=== PATIENT | male | born 1955 | race Caucasian/White ===

== ENCOUNTER 2020-12-15 14:22 | Emergency (ER) | payer OTHER ==
[~2020-12-15] VITALS: Ht 177.8 cm; Wt 106.6 kg
--- NOTE | ~2020-12-15 | EMS ---
[address] [address] EMS Patient Care Report Name: YUKI RUBIN Room #: [place]P [place]#: [id number] Admission: 12/15/20 Attend Phys: Discharge: 12/15/20 Date of : 53 Report #: [id number] THIS REPORT FOR: //name// Report Transmitted: 12/18/2020 10:26 EMS Care Summary [place], [place]/[facility] Incident [id number] @ 12/15/2020 13:33 Incident Location [address] [place] [address] Patient YUKI RUBIN Male, 65 Years 1955 Patient Address [address] [place] [id number] Patient History Diabetes,Hyperlipidemia,Morbid Obesity, Patient Allergies No known allergies, Patient Medications None Reported, Chief Complaint malaise Disposition Transported No Lights/[place] Dispatch Reason Sick Person Transported To [facility] Narrative Dispatched to a [facility] facility in regards to a sick. Upon arrival, I saw patient laying in bed in room 806. Initial assessment revealed that patient was GCS15 and did not appear to be in respiratory distress. Patient's chief [address] [address] EMS Patient Care Report Name: YUKI RUBIN Room #: DEP [place]#: [id number] Admission: 12/15/20 Attend Phys: Discharge: 12/15/20 Date of : 53 Report #: [id number] complaint was general malaise. RN stated that patient has tested positive for covid-19 and that patient requested to go to the ER even though all his vitals are normal. Physical assessment revealed that patient was pink warm and dry. Patient was transferred to our cot. Patient was secured and lifted into the ambulance. Treatment rendered was obtaining a complete set of baseline vital signs including a blood glucose reading and continued oxygen therapy. patient was transported to [facility] and patient care was transferred on arrival. Initial Vitals @14:03P: 102,R: 16,BP: 144/86,Pain: 8/10,GCS: 15,Revised Trauma: 12, @14:07P: 116,R: 16,BP: 144/86,Pain: 6/10,GCS: 15,Glucose: 95,SpO2: 94,Revised Trauma: 12, Assessments @14:00MENTAL:Event Oriented,Time Oriented,Place Oriented,Person Oriented,SKIN:HEENT:Head/Face: No Abnormalities,Eyes: No Abnormalities,LUNG SOUNDS:ABDOMEN:PELVIS//GI:EXTREMITIES:PULSE:NEURO:No Abnormalities, Impression Generalized Weakness Procedures @14:02ALS AssessmentResponse: UnchangedSucceeded@14:09Oxygen FlowRate: 2 Device: CO2 Nasal Cannula Response: UnchangedSucceeded Timeline 13:31,Call Received 13:31,Dispatch Notified 13:33,Dispatched 13:33,En Route 13:44,On Scene 13:45,At Patient 14:02,ALS Assessment,Response: UnchangedSucceeded, 14:03,BP: 144/86 M,PULSE: 102,RR: 16 R,SPO2: Ox,ETCO2: ,BG: ,PAIN: 8,GCS: 15, 14:07,Depart Scene 14:07,BP: 144/86 M,PULSE: 116,RR: 16 R,SPO2: 94 Ox,ETCO2: ,B,PAIN: 6,GCS: 15, 14:09,Oxygen FlowRate: 2 Device: CO2 Nasal Cannula Response: UnchangedSucceeded, 14:28,At Destination 14:28,Call Closed Disclaimer v1.1 Copyright 2020 [employer] This EMS Care Summary contains data elements from the applicable legal record (which may be displayed differently). It is designed to provide pertinent [address] [place] [address] EMS Patient Care Report Name: CARYNYUKI Room #: DEP Bárbara#: [id number] Admission: 12/15/20 Attend Phys: Discharge: 12/15/20 Date of : 53 Report #: [id number] information for the following purposes: continuity of care, clinical quality, and state data reporting. The complete legal record is available to ED staff and administrators of the receiving hospital in ES's Patient Tracker. All data is provided "as is."
[2020-12-15 14:57] LABS: ABSOLUTE NEUTROPHILS 5.8 thou/uL (1.4-8.2); BASOPHILS 0.6 % (0.0-2.0); EOSINOPHILS 0.6 % (0.0-3.0); HEMATOCRIT 33.9 % (42.0-52.0); HEMOGLOBIN 11.2 gm/dL (14.0-18.0); LYMPHOCYTES 16.2 % (24.0-44.0); MCH 28.1 pg (26.0-34.0); MCHC 33.1 g/dL (28.0-37.0); MCV 84.9 fL (80.0-100.0); MONOCYTES 10.3 % (1.0-8.0); PLATELET COUNT 398 thou/uL (150-400); POLYS 72.3 % (36.0-66.0); RDW 17.2 % (10.5-14.5)
[2020-12-15 15:07] LABS: CALCIUM 8.5 mg/dL (8.5-10.1); CREATININE 0.7 mg/dL (0.7-1.3); POTASSIUM 3.6 mmol/L (3.5-5.1)
[2020-12-15 15:17] LABS: ALBUMIN 1.8 g/dL (3.4-5.0); TOTAL BILIRUBIN 0.6 mg/dL (0.2-1.0); TOTAL PROTEIN 7.1 g/dL (6.4-8.2)
[2020-12-15 15:25] LABS: APTT 32.8 Seconds (24.5-32.8); INR 1.16; PROTIME 12.6 Seconds (10.5-12.1)
[2020-12-15] MEDS ORDERED: VIBRAMYCIN 100100 MG PO (16:22)
[2020-12-15 17:53] VITALS: BP 135/68
--- NOTE | 2020-12-15 19:10 | NUR ---
EMS ARRIVED AND WAS PREPARING TO TRANSPORT PATIENT BACK TO SKILLED FACILITY ([facility]). PATIENT SPOKE WITH DAY NURSE, VICENTE Treviño, NIGHT NURSE CATY Storey, THIS CHARGE NURSE AND LIFE SKILLS COACH. PATIENT STATED THAT HE DOES NOT WANT TO RETURN TO FACILITY OF RESIDENCE. ORIENTATION QUESTIONS ADDRESSED BY THIS CHARGE NURSE TO ESTABLISH THAT PATIENT IS ALERT AND ORIENTED X 4. PATIENT WAS ASKED WHY HE DID NOT WANT TO RETURN TO HIS FACILITY THAT HE HAS BEEN AT FOR 10+ DAYS. PATIENT BECAME FRUSTRATED. PATIENT WAS DIRECTLY ASKED IF ANY STAFF HAD BEEN PHYSICALLY INAPPROPRIATE, HARMFUL IN ANY WAY. PATIENT STATED "NO". PATIENT WAS ASKED IF HE FELT THOUGH HIS NEEDS WERE NOT BEING ADDRESSED IN A TIMELY MANNER. PATIENT STATES, "YES, THATS THE PROBLEM" "HOW WOULD YOU LIKE IT IF YOU WERE IN PAIN AND NOBODY WILL COME TO HELP YOU?". AGREEABLY, THIS NURSE STATES THAT WOULD BE FRUSTRATING. VERIFIED ONCE AGAIN THAT PATIENT WAS NOT BEING PHYSICALLY HARMED IN ANY WAY. PATIENT STATED "NO". PATIENT WAS INFORMED THAT RESOURCES TO PLACE PATIENT IN A NEW FACILITY ARE NOT AVAILABLE AT THIS TIME. PATIENT SPOKE WITH ALL APPROPRIATE LEVELS OF NURSING STAFF AND IT WAS DECIDED THAT HE SHOULD RETURN TO HIS FACILITY AND REQUEST A TRANSFER TO A FACILITY THAT WOULD BE ABLE TO ADDRESS HIS NEEDS IN A TIMELY FASHION. PATIENT STATES THAT A STAFF MEMBER TALKS UNKINDLY ABOUT HIM. AGAIN, INFORMATION PROVIDED REGARDING RETURNING TO PLACE OF RESIDENCE AT THIS TIME AND ATTEMPTING TRANSFER Wednesday. PATIENT LEFT WITH EMS TO RETURN TO [facility].
--- NOTE | 2020-12-17 07:37 | EKG ---
[address] [place] [address] ELECTROCARDIOGRAM REPORT Name: YUKI RUBIN Room #: [place]#: [id number] Admission: 12/15/20 Attend Phys: Discharge: 12/15/20 Date of : 53 Report #: [id number] [facility] ED Test Date: 2020-12-15 Test Time: 14:42:36 Pat Name: YUKI RUBIN Department: Room: Gender: [employer] Fire[employer]/Fireman: roselia jasmine : 1955 Requested By: Abiodun Goddard Order Number: [id number] MD: Ho Fonseca Measurements Intervals [place] Rate: 102 P: 41 AL: 119 QRS: 99 QRSD: 93 T: 178 QT: 343 QTc: 447 Interpretive Statements Sinus tachycardia Inferior infarct, old Probable lateral infarct, age indeterminate No previous ECG available for comparison Electronically Signed On 12-17-2020 7:37:34 CDT by Ho Fonseca [email or web address] <ELECTRONICALLY SIGNED> By: Ho Fonseca MD, [facility] 12/17/20 0737 1442 1442 Ho Fonseca MD, FACC /EPI
== END 2020-12-15 19:45 | disposition home or self-care (01) ==
LOC: ER 14:22
PROVIDERS: Emergency Medicine
DX: U07.1 COVID-19 (principal); M54.9 Dorsalgia, unspecified; M25.551 Pain in right hip; J12.82 Pneumonia due to coronavirus disease 2019